=== PATIENT | male | born 1990 | race Caucasian/White ===

== ENCOUNTER 2023-07-11 11:32 | Emergency (ER) | payer BC, SELFPAY ==
--- NOTE | ~2023-07-11 | CT_ITS ---
EXAMINATION: CT abdomen pelvis w con DATE: 07/11/2023 17:34 INDICATION: Epigastric pain which worsens with eating. Elevated lipase. TECHNIQUE: Computed tomography (CT) of the abdomen and pelvis was performed with 100 mL Omnipaque-350 intravenous contrast. Automated exposure control and iterative reconstruction technique were employe d. The dose-length product was 241.37 mGy-cm. COMPARISON: None FINDINGS: Lung bases are clear. Heart size normal. No pericardial or pleural effusion. Liver, gallbladder, panc reas, bilateral adrenal glands and kidneys are normal. 1.5 cm low-attenuation likely hemangioma at th e medial aspect of the spleen. No bowel obstruction. The appendix is not visualized. No pericecal inf lammatory change to suggest acute appendicitis. Decompressed bladder is unremarkable. Small amount of nonspecific ascites in the deep pelvis. No abscess or free intraperitoneal gas. Mild thoracolumbar l evoscoliosis with mild spondylosis. IMPRESSION: 1. Small amount of nonspecific ascites in the deep pelvis. No other evident acute intra-abdominal/pel michi process. Reviewed, dictated and finalized at location A. ORM DESIGNER IMPRESSION: 1. Small amount of nonspecific ascites in the deep pelvis. No other evident acu te intra-abdominal/pelvic process.
[2023-07-11 12:59] VITALS: BP 131/85; PULSE 115; RESP 19; TEMP 36.9; O2SAT 100
[2023-07-11 16:43] LABS: Basophils Absolute Auto 0.1 K/mm3 (0.0-0.1); Basophils Percent Auto 0.6 % (0.2-1.2); Eosinophils Absolute Auto 4.3 K/mm3 (0-0.3); Eosinophils Percent Auto 36.3 % (0-4.4); Hematocrit 46.4 % (42.0-52.0); Hemoglobin 15.1 g/dL (14.0-18.0); Immature Granulocyte Absolute 0.02 K/mm3 (0.00-0.031); Immature Granulocyte Percent A 0.2 % (0-0.5); Lymphocytes Absolute Auto 2.68 K/mm3 (0.9-3.2); Lymphocytes Percent Auto 22.4 % (18.3-44.2); Mean Corpuscular HGB Conc 32.5 g/dl (32-36); Mean Corpuscular Hemoglobin 29.8 pg (26-34); Mean Corpuscular Volume 91.5 fl (80-100); Mean Platelet Volume 8.6 fl (7.4-10.4); Monocytes Absolute Auto 0.6 K/mm3 (0.1-0.6); Monocytes Percent Auto 4.9 % (2.6-8.5); Neutrophils Absolute Auto 4.3 K/mm3 (1.3-6.7); Neutrophils Percent Auto 35.6 % (45.5-73.1); Platelet Count Result 199 k/mm3 (150-375); Red Blood Count 5.07 M/mm3 (4.6-6.20); Red Cell Distribution Width 13.1 % (11.5-14.5)
[2023-07-11 16:54] LABS: Alanine Aminotransferase 22 U/L (6-50); Albumin Level 4.6 g/dL (3.5-5.1); Alkaline Phosphatase 108 U/L (38-126); Anion Gap 8 mmol/L (8-16); Aspartate Amino Transferase 29 U/L (17-59); Bilirubin,Total 1.9 mg/dL (0.2-1.3); Blood Urea Nitrogen 13 mg/dL (9-20); Calcium 9.7 mg/dL (8.4-10.2); Carbon Dioxide 26 mmol/L (22-30); Chloride 104 mmol/L (98-107); Estimated CRCL calculation 118 ml/min; Estimated Glomerular Filt Rate > 60; Glucose 83 mg/dL (65-110); Lipase 603 U/L (23-300); Potassium 3.6 mmol/L (3.4-5.0); Sodium 138 mmol/L (137-145)
[2023-07-11 16:56] LABS: Platelet Estimate Adequate (Adequate); Schistocytes None Seen (NORMAL); Tear Drop Cells 1+ (NORMAL)
[2023-07-11 17:25] LABS: Appearance Urine Clear (Clear); Bacteria Urine None Seen /hpf; Bilirubin Urine 2+ (Negative); Blood Urine Negative (Negative); Color Urine Dark Yellow (Yellow); Glucose Urine UA Negative (Negative); Ketones Urine 2+ mg/dL (Negative); Leukocyte Esterase Ur Negative LEU/UL (Negative); Mucus Urine Present /lpf; Need Manual Microscopic Reviewed; Nitrate Urine Negative (Negative); Non Pathogenic Casts 0-2; Protein Urine 1+ mg/dL (Negative); RBC Urine 0-2 /hpf (0-2); Specific Grav Ur 1.032 (1.001-1.035); Squamous Epithelial Cell Urine None seen /hpf (Few); WBC Urine 0-5 /hpf
[2023-07-11 17:26] LABS: Add Urine Microscopic? YES
[2023-07-11] MEDS: BELLADONNA ALK/PHENOB ELIX 10 ML, MAG HYDROX/ALUMINUM HYD/SIMETH 30 ML, LIDOCAINE HCL 2... PO (17:47)
[2023-07-11] MEDS: SODIUM CHLORIDE 0.9% IV 1,000 ML 999 ML IV CONT (17:49)
--- NOTE | 2023-07-11 18:11 | ED.ABDPAIN ---
HPI - Abdominal Pain General Chief Complaint: Abdominal Pain Stated Complaint: abd pain Time Seen by Provider: 07/11/23 16:39 Source: patient Mode of arrival: ambulatory Limitations: no limitations History of Present Illness HPI narrative: Patient is a 33-year-old male who presents the ED with report of epigastric abdominal pain. Patient reports having pain intermittently since Friday. Describes the pain as a bloated cramping feeling. States pain is worse with eating or drinking, will flare up for several hours after attempting to eat. He has not tried anything for the pain. Denies nausea, vomiting, constipation. Does report a couple episodes of diarrhea this week. Denies rectal bleeding or melena. Does report a history of intremittent acid reflux and esophageal stricture requiring dilation, but states this pain feels different. Denies feeling as though things are getting stuck in his throat. Denies frequent NSAID use. He is a social drinker, denies daily drinking. Denies Hx of PUD, though does have a family history of this. Related Data Allergies Allergy/AdvReac Type Severity Reaction Status Date / Time amoxicillin Allergy Unknown ? Verified 07/11/23 13:01 Review of Systems Review of Systems: CONSTITUTIONAL: Denies fever, chills, or sweats. GASTROINTESTINAL: See HPI. MUSCULOSKELETAL: Denies back pain, extremity pain, myalgia. All systems reviewed & are unremarkable except as noted in HPI and below PMFSH Past Medical History Medical History (Updated 07/11/23 @ 18:39 by Mary Beth Zee PA-C) History of esophageal dilatation Exam Narrative: GENERAL: Well appearing, thin, non-toxic, in no acute distress. HEAD: Normocephalic, atraumatic. RESPIRATORY: Airway patent, respirations nonlabored. Clear to auscultation bilaterally, no rales, rhonchi, wheezing. CARDIOVASCULAR: Regular rate and rhythm without murmurs, rubs, or gallops. ABDOMINAL: Soft, mild tenderness to palpation in epigastric region, no other significant focal tenderness, nondistended. Normoactive BS. MUSCULOSKELETAL: Moves all extremities. No gross deformities. SKIN: Warm, dry, normal color. NEURO: A&O X3. Speech clear. Cranial nerves II-XII grossly intact. Steady gait. No ataxic movements. PSYCHIATRIC: Appropriate mood and affect. Normal interaction. Course Vital Signs Vital signs: Vital Signs Temperature 98.5 F 07/11/23 12:59 Pulse Rate 115 H 07/11/23 12:59 Respiratory Rate 19 07/11/23 12:59 Blood Pressure 131/85 07/11/23 12:59 Pulse Oximetry 100 07/11/23 12:59 Oxygen Delivery Room Air 07/11/23 12:59 Temperature 98.5 F 07/11/23 12:59 Pulse Rate 115 H 07/11/23 12:59 Respiratory Rate 19 07/11/23 12:59 Blood Pressure 131/85 07/11/23 12:59 Pulse Oximetry 100 07/11/23 12:59 Oxygen Delivery Room Air 07/11/23 12:59 MDM - Abdominal Pain MDM Narrative Medical decision making narrative: Patient presented to ED with several day history of epigastric abdominal pain, reporting pain to be worse with any eating or drinking. Vital signs stable upon arrival. Patient in no acute distress. CBC with leukocytosis of 12.0. CMP with total bilirubin elevated to 1.9, ALT and AST within normal limits. Lipase elevated to 603. No records to compare to. Urinalysis with 2+ ketones, no evidence for infection. CT scan of abdomen pelvis obtained and showing a small amount of deep pelvic ascites, otherwise unremarkable. Normal gallbladder, liver, pancreas, no obstructing lesions noted. No evidence of acute pancreatitis. Patient updated on lab and imaging results. He has never had pancreatitis before. On re-evaluation, he is feeling much better after GI cocktail and fluids. Discomfort significantly improved. Discussed possibility of early/ mild pancreatitis, though more suspicious for gastritis/ PUD/ GERD picture. Discussed trialing PPI at home, staying well hydrated, close follow-up with PCP versus a
[2023-07-11 19:25] VITALS: BP 117/80; PULSE 71; RESP 19; TEMP 36.7; O2SAT 99
== END 2023-07-11 19:25 | disposition home or self-care (01) ==
PROVIDERS: Emergency Medicine; Emergency Provider Physician Assistant; PCP Internal Medicine
DX: R10.13 Epigastric pain (principal); R74.8 Abnormal levels of other serum enzymes; R18.8 Other ascites
CPT/HCPCS: 36415; 74177; 80053; 81001; 83690; 85025; 96360; 96361; 99284; A9270; J7030; Q9967

== ENCOUNTER 2023-07-29 10:47 | Outpatient (CLI) | payer BC, SELFPAY ==
[2023-07-29 14:19] LABS: Basophils Percent Auto 0.7 % (0.2-1.2); Eosinophils Absolute Auto 0.6 K/mm3 (0-0.3); Eosinophils Percent Auto 13.6 % (0-4.4); Hematocrit 47.9 % (42.0-52.0); Hemoglobin 15.4 g/dL (14.0-18.0); Immature Granulocyte Absolute 0.01 K/mm3 (0.00-0.031); Immature Granulocyte Percent A 0.2 % (0-0.5); Lymphocytes Absolute Auto 1.39 K/mm3 (0.9-3.2); Mean Corpuscular HGB Conc 32.2 g/dl (32-36); Mean Corpuscular Hemoglobin 29.8 pg (26-34); Mean Corpuscular Volume 92.8 fl (80-100); Monocytes Absolute Auto 0.3 K/mm3 (0.1-0.6); Monocytes Percent Auto 7.4 % (2.6-8.5); Neutrophils Percent Auto 46.1 % (45.5-73.1); Platelet Count Result 236 k/mm3 (150-375); Red Blood Count 5.16 M/mm3 (4.6-6.20); White Blood Count 4.4 K/mm3 (4.5-10.0)
[2023-07-29 14:24] LABS: Appearance Urine Clear (Clear); Bilirubin Urine Negative (Negative); Blood Urine Negative (Negative); Color Urine Yellow (Yellow); Glucose Urine UA Negative (Negative); Ketones Urine Trace mg/dL (Negative); Leukocyte Esterase Ur Negative LEU/UL (Negative); Nitrate Urine Negative (Negative); Protein Urine Negative (Negative); Specific Grav Ur 1.021 (1.001-1.035); Urobilinogen Urine 0.2 mg/dL (<2.0); pH Urine 6.5 (5.0-9.0)
[2023-07-29 14:43] LABS: Add Urine Microscopic? NO
[2023-07-29 14:48] LABS: Alanine Aminotransferase 30 U/L (6-50); Albumin Level 4.9 g/dL (3.5-5.1); Alkaline Phosphatase 95 U/L (38-126); Anion Gap 12 mmol/L (8-16); Aspartate Amino Transferase 66 U/L (17-59); Blood Urea Nitrogen 15 mg/dL (9-20); Calcium 9.7 mg/dL (8.4-10.2); Carbon Dioxide 28 mmol/L (22-30); Chloride 102 mmol/L (98-107); Cholesterol 148 mg/dL (0-200); Estimated Glomerular Filt Rate > 60; Glucose 84 mg/dL (65-110); HDL Direct 36 mg/dL; Potassium 3.7 mmol/L (3.4-5.0); Sodium 142 mmol/L (137-145); Triglycerides 52 mg/dL (<150)
[2023-07-29 15:00] LABS: LDL Cholesterol Direct 98 mg/dL
[2023-07-29 15:01] LABS: Amylase 98 U/L (30-110); Lipase 104 U/L (23-300)
[2023-07-29 15:30] LABS: Hepatitis B Surface Antigen Negative (Negative)
[2023-07-29 15:31] LABS: HIV 1/2 Ab P24 Ag Result Negative (Negative)
[2023-07-29 15:43] LABS: Hemoglobin A1C 5.2 % (<5.7)
[2023-07-29 16:06] LABS: Bilirubin Indirect 1.3 mg/dL (0-1.1); Iron 130 ug/dL (49-181)
[2023-07-29 16:15] LABS: Percent Iron Saturation 40 % (20-50)
[2023-07-29 16:18] LABS: Hepatitis C Virus Antibody Negative (Negative)
[2023-07-30 10:58] LABS: Rapid Plasma Reagin Non-Reactive (NonReactive)
[2023-08-01 03:11] LABS: Thyroid Peroxidase Antibodies 4 IU/mL (<9)
[2023-08-01 10:36] LABS: Hepatitis B Core Ab Total Nonreactive (Nonreactive)
[2023-08-01 12:03] LABS: Herpes Simplex Type 1 DNA PCR NOT DETECTED; Herpes Simplex Type 2 DNA PCR NOT DETECTED
== END 2023-07-29 10:48 | disposition home or self-care (01) ==
LOC: ANHGOSHLAB 10:49
PROVIDERS: PCP Internal Medicine; Visit Provider Clinical Nurse Specialist
DX: R19.7 Diarrhea, unspecified (principal); R63.4 Abnormal weight loss; R63.1 Polydipsia; Z20.2 Contact with and (suspected) exposure to infections with a predominantly sexual mode of transmission; Z86.19 Personal history of other infectious and parasitic diseases; R74.01 Elevation of levels of liver transaminase levels; R17 Unspecified jaundice
CPT/HCPCS: 36415; 80053; 80061; 81003; 82150; 82248; 82607; 82728; 83036; 83540; 83550; 83690; 84443; 85025; 86376; 86592; 86703; 86704; 86803; 87045; 87177; 87209; 87340; 87427; 87449; 87529; 89055; G0432

== ENCOUNTER 2023-07-29 13:14 | Outpatient (CLI) | payer BC, SELFPAY | END 2023-07-29 13:15 | disposition home or self-care (01) | LOC: ANHLAB 13:16 | PROVIDERS: PCP Internal Medicine; Visit Provider Clinical Nurse Specialist | DX: R19.7 Diarrhea, unspecified (principal) | CPT/HCPCS: 87045; 87177; 87209; 87427; 87449; 89055 ==

== ENCOUNTER → 2023-08-01 09:14 | Outpatient (CLI) | payer BC, SELFPAY ==
--- NOTE | ~2023-08-01 | US_ITS ---
Limited Abdominal Sonogram: Real-time sonographic imaging of the right upper quadrant was performed. Clinical History: Abnormal liver enzymes Findings: The liver appears normal with no evidence of mass lesion or bile duct dilatation. Main por josé miguel vein demonstrates normal direction of flow. The gallbladder is well distended, and appears normal with no evidence of gallstone or wall thickening. The common bile duct measures 3 mm. The visualize d pancreas, aorta, and IVC are unremarkable. Impression: No significant abnormality seen. Reviewed, dictated and finalized at location . STRIAL PRODUCTION MANAGER Impression: No significant abnormality seen.
== END ==
PROVIDERS: PCP Clinical Nurse Specialist; Visit Provider Clinical Nurse Specialist
DX: R74.01 Elevation of levels of liver transaminase levels (principal); R17 Unspecified jaundice
CPT/HCPCS: 76705

== ENCOUNTER 2023-08-27 03:34 | Day surgery (SDC) | payer BC, SELFPAY ==
[2023-08-19 10:25] VITALS: BMI 20.1
--- NOTE | 2023-08-20 10:04 | PC.NURSE ---
08/19/2023 PRE-OP INTERVIEW DONE, PT EXPRESSED HE IS STILL HAVE ISSUES WITH DIARRHEA-IS NOT HAS BAD IT WAS IN JUN-JUL BUT IS NOT NORMAL FOR HIM. STATES HE WOULD LIKE TO HAVE A COLONOSCOPY IF POSSIBLE WHEN HAVING THE EGD. I TOLD PT TO CALL THE OFFICE AND LET THEM KNOW HE IS HAVING SYMPTOMS AND WOULD LIKE TO HAVE COLON IF WARRANTED. I TOLD PT I WOULD RELAY MESSAGE ALSO TO OFFICE FOR DEMETRICE ELLSWORTH NP.
--- NOTE | 2023-08-25 10:43 | SUR.PREOP ---
Patient called regarding upcoming procedure. Reviewed preop instructions, appointment times, procedure prep.
[2023-08-27 13:32] VITALS: BP 131/78; PULSE 79; RESP 16; TEMP 36.9; O2SAT 100
--- NOTE | 2023-08-27 13:32 | WPDANESEPPF ---
Anes - Initial Pre Proc Eval Procedure: Operation Date: 08/27/23 15:00 Proposed Procedures p Esophagogastroduodenoscopy - Blair Linton MD Date/Time: 08/27/23 13:32 Surgeon: Blair Linton MD Pre Op Diagnosis: Dysphagia,Eosinophilic esophagitis,Gilbert Syndrom Patient Data Age: 33 Gender: M Height: 1.78 m Weight: 63.6 kg Allergies Allergy/AdvReac Type Severity Reaction Status Date / Time amoxicillin Allergy Unknown Unknown Verified 08/27/23 13:31 Home Medications Medication Instructions Recorded Confirmed Type dupilumab 300 mg/2 mL subcutaneous 300 mg (2 mL) subcut WEEKLY #4 mL 08/11/23 08/19/23 Rx pen injector ([employer]ix[employer]bs[employer]) B-complex with vitamin C 1 cap PO DAILY 08/19/23 08/19/23 History Cordycepts 1 cap PO DAILY 08/19/23 08/19/[address] 1 cap PO DAILY 08/19/23 08/19/23 History Reishi Mushroom 1 cap PO DAILY 08/19/23 08/19/23 History [place] 1 cap PO DAILY 08/19/23 08/19/23 History imiquimod 5 % topical cream packet 1 applic topical PRN PRN Rash 08/19/23 08/19/23 History Patient hx anesthesia problems: none Family hx anesthesia problems: none Results Review: All pre-operative results and documents have been reviewed as part of the pre-operative evaluation. [facility] Past Medical History Medical History Dysphagia Eosinophilia Eosinophilic esophagitis Gilbert disease Surgical History Surgical History History of esophageal dilatation Family History Family History Mother Melanoma Grandparent Liver cancer Hypertension Grandparent Alcoholism Social History Social History Social History: caffeine 2 cups coffee daily Smoking status: Never smoker Alcohol intake: current Drinks per week: 15 Alcohol use details: BEER OR WINE Substance use: never Substance use type: does not use Lack of Transportation: No Lack of Food: Sometimes True Current Housing: I Have Housing Concerned About Future Housing: No Difficulty Paying Gas/Electric Bills: No Difficulty Paying for Meds: No Currently Unemployed: No Education: Master's Degree or Higher Difficulty w/ Childcare or Family Care: No Living arrangements: with family Occupation/Education: occupation 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 Informed Consent: The patient's anesthetic plan and its attendant risks and benefits were discussed with the patient/family/POA. Questions were solicited and answers provided to the satisfaction of the patient/family/POA.
[2023-08-27] MEDS: LACTATED RINGERS 1,000 ML 150 ML IV CONT (13:43)
--- NOTE | 2023-08-27 14:16 | WPDHPUPDATE1 ---
History and Physical Update Update Date/Time: 08/27/23 14:16 History and Physical has been reviewed, including an updated exam of the patient. There are NO changes in the patient's condition. Risks, benefits, and alternatives have been discussed and questions answered. Patient agrees to proceed with procedure.
[2023-08-27 14:34] VITALS: BP 99/59; PULSE 78; RESP 16; O2SAT 100
[2023-08-27 14:44] VITALS: BP 98/60; PULSE 82; RESP 19; O2SAT 100
[2023-08-27 14:54] VITALS: BP 112/70; PULSE 73; RESP 18; O2SAT 100
== END 2023-08-27 15:09 | disposition home or self-care (01) ==
PROVIDERS: PCP Clinical Nurse Specialist; Visit Provider Internal Medicine Gastroenterology
PROC: 0DJ08ZZ Inspection of Upper Intestinal Tract, Via Natural or Artificial Opening Endoscopic (ICD-10-PCS; CPT 43235; principal; 2023-08-27 15:00)
DX: K20.0 Eosinophilic esophagitis (principal); K22.2 Esophageal obstruction; K29.50 Unspecified chronic gastritis without bleeding; Z79.620 Long term (current) use of immunosuppressive biologic; E80.4 Gilbert syndrome
CPT/HCPCS: 43249; 43239; 88305; C1726; J2704; J7120

== ENCOUNTER 2023-09-05 08:43 | Outpatient (CLI) | payer BC, SELFPAY ==
[2023-09-05 13:57] LABS: Alanine Aminotransferase 32 U/L (6-50); Albumin Level 4.7 g/dL (3.5-5.1); Alkaline Phosphatase 90 U/L (38-126); Aspartate Amino Transferase 69 U/L (17-59)
== END 2023-09-05 08:44 | disposition home or self-care (01) ==
LOC: ANHGOSHLAB 08:44
PROVIDERS: PCP Clinical Nurse Specialist; Visit Provider Nurse Practitioner
DX: R74.01 Elevation of levels of liver transaminase levels (principal)
CPT/HCPCS: 36415; 80076

== ENCOUNTER 2023-09-10 09:22 | Outpatient (CLI) | payer SELFPAY ==
[2023-09-10 22:24] LABS: Iron 165 ug/dL (49-181)
[2023-09-10 22:34] LABS: Percent Iron Saturation 49 % (20-50)
[2023-09-12 21:08] LABS: Mitochondrial (M2) Ab (IgG) <=20.0 U (<=20.0)
[2023-09-13 08:50] LABS: Ceruloplasmin 26 mg/dL (18-36)
[2023-09-14 09:48] LABS: GGT 16 U/L (3-90)
[2023-09-14 12:05] LABS: LKM 1 Antibody <=20.0 U (<=20.0)
[2023-09-15 06:01] LABS: Actin Antibody (IgG) <20 U (<20)
[2023-09-16 12:10] LABS: Anti Nuclear Antibody Pattern Nuclear, Speckled; Anti Nuclear Antibody Titer 1:40 (Negative)
== END 2023-09-10 09:23 | disposition home or self-care (01) ==
LOC: ANHGOSHLAB 09:24
PROVIDERS: PCP Clinical Nurse Specialist; Visit Provider Nurse Practitioner
DX: R74.01 Elevation of levels of liver transaminase levels (principal); K74.60 Unspecified cirrhosis of liver
CPT/HCPCS: 36415; 82104; 82390; 82728; 82977; 83520; 83540; 83550; 85610; 86038; 86039; 86364; 86376

== ENCOUNTER 2023-10-06 11:02 | Outpatient (CLI) | payer BC, SELFPAY ==
[2023-10-06 19:47] LABS: Alanine Aminotransferase 21 U/L (6-50); Albumin Level 4.9 g/dL (3.5-5.1); Alkaline Phosphatase 79 U/L (38-126); Aspartate Amino Transferase 41 U/L (17-59); Bilirubin,Total 1.7 mg/dL (0.2-1.3)
== END 2023-10-06 11:03 | disposition home or self-care (01) ==
LOC: ANHGOSHLAB 11:04
PROVIDERS: PCP Clinical Nurse Specialist; Visit Provider Nurse Practitioner
DX: R74.01 Elevation of levels of liver transaminase levels (principal)
CPT/HCPCS: 36415; 80076

== ENCOUNTER 2024-08-05 08:45 | Outpatient (CLI) | payer BC, SELFPAY ==
[2024-08-05 14:58] LABS: Basophils Percent Auto 0.9 % (0.2-1.2); Eosinophils Absolute Auto 0.1 K/mm3 (0-0.3); Eosinophils Percent Auto 1.1 % (0-4.4); Hematocrit 49.1 % (42.0-52.0); Hemoglobin 15.9 g/dL (14.0-18.0); Immature Granulocyte Absolute 0.01 K/mm3 (0.00-0.031); Immature Granulocyte Percent A 0.2 % (0-0.5); Lymphocytes Absolute Auto 1.37 K/mm3 (0.9-3.2); Lymphocytes Percent Auto 30.9 % (18.3-44.2); Mean Corpuscular HGB Conc 32.4 g/dl (32-36); Mean Corpuscular Hemoglobin 30.3 pg (26-34); Mean Corpuscular Volume 93.5 fl (80-100); Mean Platelet Volume 8.9 fl (7.4-10.4); Monocytes Absolute Auto 0.4 K/mm3 (0.1-0.6); Monocytes Percent Auto 7.9 % (2.6-8.5); Neutrophils Absolute Auto 2.6 K/mm3 (1.3-6.7); Platelet Count Result 227 k/mm3 (150-375); Red Blood Count 5.25 M/mm3 (4.6-6.20); Red Cell Distribution Width 12.7 % (11.5-14.5); White Blood Count 4.4 K/mm3 (4.5-10.0)
[2024-08-05 16:24] LABS: Alanine Aminotransferase 37 U/L (6-50); Albumin Level 4.6 g/dL (3.5-5.1); Alkaline Phosphatase 120 U/L (38-126); Anion Gap 9 mmol/L (4-12); Aspartate Amino Transferase 60 U/L (17-59); Bilirubin,Total 1.6 mg/dL (0.2-1.3); Blood Urea Nitrogen 21 mg/dL (9-20); Calcium 9.5 mg/dL (8.4-10.2); Carbon Dioxide 30 mmol/L (22-30); Chloride 102 mmol/L (98-107); Cholesterol 153 mg/dL (0-200); Estimated Glomerular Filt Rate > 60; Glucose 89 mg/dL (65-110); HDL Direct 45 mg/dL; Potassium 4.3 mmol/L (3.4-5.0); Sodium 141 mmol/L (137-145); Triglycerides 63 mg/dL (<150)
[2024-08-05 16:29] LABS: CRP < 0.5 mg/dL (<1.0)
[2024-08-05 16:37] LABS: LDL Cholesterol Direct 86 mg/dL
[2024-08-05 23:03] LABS: Iron 148 ug/dL (49-181)
[2024-08-05 23:12] LABS: Percent Iron Saturation 42 % (20-50)
[2024-08-06 14:28] LABS: Insulin Level Total 4.6 uIU/mL
[2024-08-09 12:38] LABS: Homocysteine 7.7 umol/L (<11.4)
== END 2024-08-05 08:46 | disposition home or self-care (01) ==
LOC: ANHGOSHLAB 08:46
PROVIDERS: PCP Clinical Nurse Specialist; Visit Provider Clinical Nurse Specialist
DX: R74.8 Abnormal levels of other serum enzymes (principal); R74.01 Elevation of levels of liver transaminase levels; F41.9 Anxiety disorder, unspecified; R63.4 Abnormal weight loss; K20.0 Eosinophilic esophagitis; R53.83 Other fatigue; E80.4 Gilbert syndrome; R76.8 Other specified abnormal immunological findings in serum
CPT/HCPCS: 36415; 80053; 80061; 82728; 83090; 83525; 83540; 83550; 83735; 84443; 85025; 86140